=== PATIENT | female | born 1990 | race Two or more races ===

== ENCOUNTER 2025-04-17 11:32 | Emergency (ER) | payer OTHER ==
[~2025-04-17] VITALS: Ht 165.1 cm; Wt 56.7 kg
[2025-04-17 13:49] VITALS: BP 112/71; O2SAT 99
[2025-04-17] MEDS ORDERED: SERTRALINE HCL100 MG PO (13:52)
[2025-04-17] MEDS ORDERED: 0.9 % SODIUM CHLORIDE 1,000 ML IV ONE (14:45)
[2025-04-17] MEDS ORDERED: LACTOBACILLUS ACIDOPHILUS 1 CAP CAP PO ONE (14:45)
[2025-04-17] MEDS ORDERED: FAMOTIDINE/PF 20 MG/2 ML VIAL IV ONE (14:45)
[2025-04-17] MEDS ORDERED: ONDANSETRON HCL 2 MG/ML VIAL IV ONE (14:45)
[2025-04-17 15:57] LABS: BASO % 0.4 % (0.1-1.2); EOS # 0.00 (0.04-0.54); EOS % 0.0 % (0.7-7.0); LYMPH # 0.53 (1.18-3.74); LYMPH % 6.6 % (19.3-53.1); MEAN PLATELET VOLUME 8.70 fl (9.4-12.4); MONO # 0.70 (0.24-0.82); MONO % 8.8 % (4.7-12.5); NEUT # 6.68 (1.56-6.13); NEUT % 83.8 % (34.0-71.1); RED CELL DISTRIBUTION WIDTH 13.0 % (11.6-14.4)
[2025-04-17 16:17] LABS: URINE APPEARANCE Clear; URINE BILIRRUBIN Negative (NEGATIVE); URINE BLOOD Small; URINE COLOR Dark Yellow; URINE GLUCOSE Negative (NEGATIVE); URINE KETONE 15 (NEGATIVE); URINE LEUKOCYTE Trace; URINE NITRATE Negative; URINE UROBILINOGEN 1.0 E.U./dl
[2025-04-17 16:22] LABS: URINE BACTERIA 169.1 uL (0.0-1933); URINE EPITHELIAL CELLS 37.6 uL (0.0-38.8); URINE RBC 31.9 uL (0.0-20.8); URINE WBC 7.9 uL (0.0-23.2)
[2025-04-17 16:34] LABS: ALT/SGPT 23.0 U/L (12-78); AST/SGOT 22.0 U/L (15-37); BILIRUBIN TOTAL 0.69 mg/dL (0.3-1.2); BUN CREA RATIO 13.0 (7.0-25.0); CREATININE SERUM 1.04 mg/dL (0.55-1.02); GFR 60.66; GLOBULINA 3.7 G/DL (2.4-3.5); GLUCOSE FASTING 96.0 mg/dL (65-100); OSMOLALITY SERUM 274.0 MOSM/KG (275-295)
[2025-04-17 16:35] LABS: URINE CAST 0.14 uL (0.0-1.40); URINE PROTEIN 100 (NEGATIVE)
[2025-04-17] MEDS ORDERED: DIPHENOXYLATE HCL/ATROPINE 1 UDTAB TABLET PO ONE (17:45)
[2025-04-17] MEDS ORDERED: CIPRO500 MG PO (17:46)
[2025-04-17] MEDS ORDERED: LEVSIN/SL0.125 MG SL (17:46)
[2025-04-17] MEDS ORDERED: INTESTINEX680 M1 PO (17:46)
[2025-04-17] MEDS ORDERED: ONDANSETRON ODT8 MG PO (17:46)
[2025-04-17] MEDS ORDERED: PEPCID AC20 MG PO (17:46)
== END 2025-04-17 18:26 | disposition home or self-care (01) ==
LOC: ER 12:38
PROVIDERS: General Practice
DX: A09 Infectious gastroenteritis and colitis, unspecified (principal); R07.89 Other chest pain

== ENCOUNTER 2025-04-19 01:21 | Emergency (ER) | payer OTHER ==
[~2025-04-19] VITALS: Ht 162.6 cm; Wt 56.7 kg
[~2025-04-19 01:21] MED LIST: CIPRO500 MG PO; INTESTINEX680 M1 PO; LEVSIN/SL0.125 MG SL; ONDANSETRON ODT8 MG PO; PEPCID AC20 MG PO; SERTRALINE HCL100 MG PO
[2025-04-19] MEDS ORDERED: ZOLOFT100 MG PO (01:41)
[2025-04-19] MEDS ORDERED: 0.9 % SODIUM CHLORIDE 1,000 ML IV STA (02:17)
[2025-04-19] MEDS ORDERED: ONDANSETRON HCL 2 MG/ML VIAL IV STA (02:18)
[2025-04-19] MEDS ORDERED: FAMOtidine 10 MG/ML (4ML VIAL) IV PUSH STA (02:18)
[2025-04-19] MEDS ORDERED: HYOSCYAMINE SULFATE 0.125 MG TAB.SUBL SL STA (02:18)
[2025-04-19 03:27] LABS: ALT/SGPT 34.0 U/L (12-78); AST/SGOT 37.0 U/L (15-37); BILIRUBIN TOTAL 0.5 mg/dL (0.3-1.2); BUN CREA RATIO 12.0 (7.0-25.0); CREATININE SERUM 0.93 mg/dL (0.55-1.02); GFR 69.01; GLOBULINA 4.1 G/DL (2.4-3.5); GLUCOSE FASTING 115.0 mg/dL (65-100); OSMOLALITY SERUM 267.0 MOSM/KG (275-295)
[2025-04-19 03:34] LABS: BASO % 0.7 % (0.1-1.2); EOS # 0.01 (0.04-0.54); EOS % 0.2 % (0.7-7.0); LYMPH # 0.56 (1.18-3.74); LYMPH % 13.3 % (19.3-53.1); MEAN PLATELET VOLUME 9.60 fl (9.4-12.4); MONO # 0.64 (0.24-0.82); NEUT # 2.97 (1.56-6.13); NEUT % 70.4 % (34.0-71.1); RED CELL DISTRIBUTION WIDTH 12.5 % (11.6-14.4)
[2025-04-19 04:11] LABS: MONO % 15.2 % (4.7-12.5)
[2025-04-19 04:12] LABS: BAND MAN 12.0 %; LYMPHOCYTE MAN 13.0 %; MONOCYTE MAN 14.0 %; NEUTROPHILS MAN 61.0 %
[2025-04-19] MEDS ORDERED: DIPHENOXYLATE HCL/ATROPINE 1 UDTAB TABLET PO STA (04:35)
[2025-04-19] MEDS ORDERED: CEFAZOLIN SODIUM 1,000 MG VIAL IV STA (05:27)
== END 2025-04-19 10:59 | disposition home or self-care (01) ==
LOC: ER 01:21
DX: K52.89 Other specified noninfective gastroenteritis and colitis (principal)